=== PATIENT | female | born 1985 | race Asian ===

== ENCOUNTER 2016-08-30 21:41 | Emergency (ER) | payer OTHER ==
[~2016-08-30] VITALS: Ht 162.6 cm; Wt 61.2 kg
[2016-08-30 22:22] LABS: PLATELET COUNT 251 K/uL (152-353)
[2016-08-30 22:32] LABS: POTASSIUM 3.2 mmol/L (3.6-5.2); SODIUM 135 mmol/L (136-145)
== END 2016-08-30 23:02 | disposition home or self-care (01) ==
LOC: ED 21:41
DX: N39.0 Urinary tract infection, site not specified (principal); K30 Functional dyspepsia
CPT/HCPCS: 36415; 80053; 81000; 85027; 86318; 87077; 87086; 87088; 87186; 99283

== ENCOUNTER 2017-07-22 10:36 | Outpatient (CLI) | payer OTHER | END 2017-07-22 22:05 | disposition home or self-care (01) | LOC: CT 10:36 | DX: R51 Headache (principal); G31.89 Other specified degenerative diseases of nervous system ==

== ENCOUNTER 2017-09-20 14:55 | Outpatient (CLI) | payer OTHER | END 2017-09-20 14:58 | disposition short-term general hospital (02) | LOC: AMB 14:55 | DX: S61.411A Laceration without foreign body of right hand, initial encounter (principal); V49.40XA Driver injured in collision with unspecified motor vehicles in traffic accident, initial encounter; Y92.414 Local residential or business street as the place of occurrence of the external cause | CPT/HCPCS: A0425; A0429 ==

== ENCOUNTER 2017-09-20 14:59 | Emergency (ER) | payer OTHER ==
[~2017-09-20] VITALS: Ht 160 cm; Wt 59.0 kg
[2017-09-20 15:11] VITALS: BP 120/74; TEMP 100
[2017-09-20 15:57] LABS: PLATELET COUNT 268 K/uL (152-353); POTASSIUM 3.4 mmol/L (3.6-5.2)
== END 2017-09-20 18:50 | disposition home or self-care (01) ==
LOC: ED 14:59
PROC: 05L Upper Veins, Occlusion (ICD-10-PCS; principal; 2017-09-20)
DX: S51.811A Laceration without foreign body of right forearm, initial encounter (principal); S66.991A Other injury of unspecified muscle, fascia and tendon at wrist and hand level, right hand, initial encounter; R07.89 Other chest pain; R10.2 Pelvic and perineal pain; V49.40XA Driver injured in collision with unspecified motor vehicles in traffic accident, initial encounter
CPT/HCPCS: 36415; 80053; 85027; 90471; 90715; 96365; 99284; J0696; J1885; J7040; Q9963